=== PATIENT | male | born 1940 | race Caucasian/White ===

== ENCOUNTER 2017-07-29 06:06 | Day surgery (SDC) | payer MEDICARE ==
[2017-07-27 14:45] VITALS: BP 129/76
[2017-07-29] VITALS (11 sets, daily range): BP systolic 107–131; BP diastolic 67–87
[~2017-07-29] VITALS: Ht 180.3 cm; Wt 102.5 kg
[~2017-07-29 06:06] MED LIST: ASPI-1197 PO; ATOR40TA71 PO; CEFAZOLIN SODIUM 1 GM VIAL IVP SCH; CILO100T PO; CLOP75TA14 PO; ISOS60TA4 PO; LOSA100T29 PO; METF10004 PO; METO50TA18 PO
[2017-07-29] MEDS ORDERED: SODIUM CHLORIDE 0.9% 1000ML 1,000 ML IV ONE (06:54)
[2017-07-29] MEDS ORDERED: LIDOCAINE HCL-MPF 0.5% 50ML VIAL IJ ONE (07:13)
[2017-07-29] MEDS ORDERED: ONDANSETRON HCL 4 MG/2 ML VIAL ONE (07:16)
[2017-07-29] MEDS ORDERED: DEXAMETHASONE SOD PHOSPHATE 10MG/ML 1ML VIAL ONE (07:17)
[2017-07-29] MEDS ORDERED: MIDAZOLAM HCL 1 MG/ML 2ML VIAL ONE ×2 (07:17→07:52)
[2017-07-29] MEDS ORDERED: SUCCINYLCHOLINE 200MG/10ML SYR ONE (07:17)
[2017-07-29] MEDS ORDERED: GLYCOPYRROLATE 0.2 MG/ML 5 ML VIAL ONE (07:17)
[2017-07-29] MEDS ORDERED: FENTANYL CITRATE PF 50 MCG/1 ML 2ML VIAL ONE ×2 (07:17→08:08)
[2017-07-29] MEDS ORDERED: LIDOCAINE PF 2% 5ML ABBOJECT ONE (07:17)
[2017-07-29] MEDS ORDERED: PROPOFOL 10 MG/ML 20ML VIAL IV ONE (07:17)
[2017-07-29] MEDS ORDERED: LIDOCAINE HCL-MPF 1% 5ML AMP IJ ONE (07:56)
[2017-07-29] MEDS ORDERED: PHENYLEPHRINE HCL 10 MG/ML 1ML VIAL IV ONE (07:58)
[2017-07-29] MEDS ORDERED: ESMOLOL HCL 10 MG/ML 10 ML VIAL ONE (07:59)
[2017-07-29] MEDS ORDERED: NOREPINEPHRINE BITARTRATE 1 MG/1 ML ML IV ONE (08:00)
== END 2017-07-29 10:20 | disposition home or self-care (01) ==
LOC: DAH 06:06
PROVIDERS: ATTEND Neurological Surgery
DX: G56.02 Carpal tunnel syndrome, left upper limb (principal); Z95.1 Presence of aortocoronary bypass graft; Z79.899 Other long term (current) drug therapy; Z79.84 Long term (current) use of oral hypoglycemic drugs; I25.10 Atherosclerotic heart disease of native coronary artery without angina pectoris; E11.9 Type 2 diabetes mellitus without complications; I21.3 ST elevation (STEMI) myocardial infarction of unspecified site; Z98.890 Other specified postprocedural states
CPT/HCPCS: 64721; 82948 ×2; 93005; A4218; J0330; J0690; J1100; J2001; J2250 ×2; J2370; J2405; J2704; J3010 ×2; J3490 ×5; J7030

== ENCOUNTER 2018-06-30 10:44 | Emergency (ER) | payer MEDICARE ==
[~2018-06-30 10:44] MED LIST changes: -CEFAZOLIN SODIUM 1 GM VIAL IVP SCH; -LOSA100T29 PO; +LOSA100T58 PO; +METF-446 PO; -METF10004 PO
[2018-06-30] MEDS ORDERED: ONDANSETRON HCL 4 MG/2 ML VIAL ONE (11:19)
[2018-06-30] MEDS ORDERED: MORPHINE SULFATE 4 MG/1ML SYG ONE (11:20)
[2018-06-30 11:26] LABS: BASOPHILS % (AUTO) 0.6 % (0.0-5.0); EOSINOPHILS % (AUTO) 2.2 % (0.0-8.0); HEMATOCRIT 41.6 % (42-54); LYMPHOCYTES % (AUTO) 21.3 % (21.0-51.0); MEAN CORPUSCULAR HEMOGLOBIN 30.2 pg (27.0-33.0); MEAN CORPUSCULAR HGB CONC 33.8 g/dL (32.0-36.0); MEAN CORPUSCULAR VOLUME 89.3 fL (79-99); MONOCYTES % (AUTO) 8.6 % (3.0-13.0); NEUTROPHILS % (AUTO) 67.3 % (40.0-77.0); NUCLEATED RED BLOOD CELLS 0.2 % (0.0-0.19); PLATELET COUNT (AUTO) 196 K/uL (130-400); RED BLOOD CELL COUNT(AUTO) 4.66 MIL/uL (4.50-6.20); RED CELL DISTRIBUTION WIDTH 13.2 % (11.0-15.5); WHITE BLOOD COUNT (AUTO) 7.5 K/uL (4.8-10.8)
[2018-06-30 11:30] LABS: CREATININE 1.4 mg/dL (0.5-1.5); POTASSIUM 4.4 mmol/L (3.5-5.1)
[2018-06-30 11:34] LABS: ALBUMIN 3.8 g/dL (3.5-5.0); BILIRUBIN,DIRECT 0.1 mg/dL (0.0-0.3); BILIRUBIN,TOTAL 0.5 mg/dL (0.2-1.0); TOTAL PROTEIN, SERUM 7.6 g/dL (6.0-8.3)
== END 2018-06-30 14:23 | disposition home or self-care (01) ==
LOC: EDH 10:44
DX: K57.32 Diverticulitis of large intestine without perforation or abscess without bleeding (principal); I71.4 Abdominal aortic aneurysm, without rupture; I10 Essential (primary) hypertension; E11.9 Type 2 diabetes mellitus without complications; E78.5 Hyperlipidemia, unspecified; G89.29 Other chronic pain; M54.9 Dorsalgia, unspecified; Z79.899 Other long term (current) drug therapy; Z95.1 Presence of aortocoronary bypass graft; Z87.891 Personal history of nicotine dependence
CPT/HCPCS: 36415; 74176; 80048; 80076; 83690; 84484; 85025; 93005; 96374; 96375; 99285; J2270; J2405